=== PATIENT | female | born 1965 | race Caucasian/White ===

== ENCOUNTER 2017-09-14 14:09 | Emergency (ER) | payer SELFPAY ==
[2017-09-14 14:23] VITALS: BP 135/88
--- NOTE | 2017-09-14 14:33 | UC ---
Throat Pain/Nasal David HPI - HPI Summary HPI Summary: Patient complains of sinus pain pressure vertigo neck getting better for 2 weeks ago - History of Current Complaint Chief Complaint: UCGeneralIllness Stated Complaint: SINUS ISSUE Time Seen by Provider: 09/14/17 14:18 Hx Obtained From: Patient ?: No Onset/Duration: Gradual Onset, Lasting Weeks - 2, Still Present Severity: Moderate Cough: None Associated Signs & Symptoms: Positive: Sinus Discomfort, Nasal Discharge Related History: Smoking - Allergies/Home Medications Allergies/Adverse Reactions: Allergies Allergy/AdvReac Type Severity Reaction Status Date / Time Penicillins Allergy Rash Verified 09/14/17 14:24 PMH/Surg Hx/FS Hx/Imm Hx Previously Healthy: Yes - Surgical History Surgical History: None - Family History Known Family History: Positive: None - Social History Occupation: Employed Full-time Lives: With Family Alcohol Use: None Substance Use Type: None Smoking Status (MU): Heavy Every Day Tobacco Smoker Type: Cigarettes Amount Used/How Often: 1/2 PPD Have You Smoked in the Last Year: Yes Cessation Counseling: Counseled 3+Min - 10 Min Review of Systems Constitutional: Chills, Fatigue Skin: Negative Eyes: Negative ENT: Nasal Discharge, Sinus Congestion, Sinus Pain/Tenderness Respiratory: Negative Cardiovascular: Negative Gastrointestinal: Negative Genitourinary: Negative Motor: Negative Neurovascular: Negative Musculoskeletal: Negative Neurological: Headache Psychological: Negative Is Patient Immunocompromised?: No All Other Systems Reviewed And Are Negative: Yes Physical Exam Triage Information Reviewed: Yes Appearance: Well-Nourished, Ill-Appearing - mild, Pain Distress - mild Vital Signs: Initial Vital Signs Temp 98.3 F 09/14/17 14:19 Pulse 113 09/14/17 14:19 Resp 20 09/14/17 14:19 BP 135/88 09/14/17 14:19 Pulse Ox 97 09/14/17 14:19 Vital Signs Reviewed: Yes Eye Exam: Normal Eyes: Positive: Conjunctiva Clear ENT Exam: Normal ENT: Positive: Normal ENT inspection, Hearing grossly normal, Pharynx normal, Nasal congestion, Nasal drainage, TMs normal, Sinus tenderness, Uvula midline. Negative: Tonsillar swelling, Tonsillar exudate, Trismus, Muffled voice, Hoarse voice, Dental tenderness Dental Exam: Normal Neck exam: Normal Neck: Positive: Supple, Nontender Respiratory Exam: Normal Respiratory: Positive: Chest non-tender, Lungs clear, Normal breath sounds, No respiratory distress, No accessory muscle use Cardiovascular Exam: Normal Cardiovascular: Positive: Pulses Normal, Brisk Capillary Refill, Tachycardia Musculoskeletal Exam: Normal Musculoskeletal: Positive: Strength Intact, ROM Intact, No Edema Neurological Exam: Normal Neurological: Positive: Alert, Muscle Tone Normal Psychological Exam: Normal Skin Exam: Normal Throat Pain/Nasal Course/Dx - Course Assessment/Plan: Nicotine cessation information provided, patient advised to increase fluid, use doxycycline Mucinex D, patient refuses Flonase. referral provided for primary care provider for follow-up - Differential Dx/Diagnosis Provider Diagnoses: Acute sinusitis nicotine dependence Discharge - Discharge Plan Condition: Stable Disposition: HOME Prescriptions: Doxycycline Monohydrate 100 mg PO BID #20 capsule Guaifenesin/Pseudo 600/60(NF) [Mucinex D 600/60 (NF)] 1 tab PO Q12H PRN #20 tab PRN Reason: sinus congestion Patient Education Materials: How to Stop Smoking (ED), Sinusitis (ED) Referrals: [facility] [Provider Group] - If Needed [facility] [place] [facility] [Outside] - If Needed
== END 2017-09-14 14:43 | disposition home or self-care (01) ==
LOC: UCEAST 14:09
DX: J01.90 Acute sinusitis, unspecified (principal); F17.210 Nicotine dependence, cigarettes, uncomplicated; Z88.0 Allergy status to penicillin
CPT/HCPCS: 99212; G0463